=== PATIENT | male | born 2000 | race Caucasian/White ===

== ENCOUNTER 2022-12-29 13:52 | Emergency (ER) | payer OTHER, BC ==
[2022-12-29 14:14] VITALS: BP 120/53; PULSE 90; RESP 18; TEMP 98.1; BMI 21.7
[2022-12-29] MEDS ORDERED: KETOROLAC TROMETHAMINE 30 MG/1 ML VIAL IM ONE (14:21)
[2022-12-29] MEDS ORDERED: KETOROLAC TROMETHAMINE 30 MG/1 ML VIAL ONE (14:31)
== END 2022-12-29 16:08 | disposition home or self-care (01) ==
LOC: JERFT 13:52 → JER 13:52 → JERFT 16:08
PROC: 3E0233Z Introduction of Anti-inflammatory into Muscle, Percutaneous Approach (ICD-10-PCS; principal; 2022-12-29)
DX: R07.81 Pleurodynia (principal); R07.89 Other chest pain; R22.2 Localized swelling, mass and lump, trunk
CPT/HCPCS: 71101-TC-RT-FY; 71250-TC; 93005; 93010; 99285-25